=== PATIENT | male | born 1960 | race Caucasian/White ===

== ENCOUNTER 2020-09-19 07:00 | Observation (INO) ==
[2020-09-19] MEDS ORDERED: Acetaminophen IV 1,000 MG/100 ML BAG IVPB PRN (07:30)
[2020-09-19] MEDS ORDERED: *HR* OxyCODONE Immed Rel 5 MG TABLET PO PRN (07:30)
[2020-09-19] MEDS ORDERED: *HR* Meperidine 25 MG/ML SYRINGE IVP PRN (07:30)
[2020-09-19] MEDS ORDERED: *HR* FentaNYL (PF) 100 MCG/2 ML VIAL IVP PRN (07:30)
[2020-09-19] MEDS ORDERED: *HR* HYDROmorphone (PF) 1 MG/ML SYRINGE IVP PRN (07:30)
[2020-09-19] MEDS ORDERED: Heparin 1,000 UNITS/500 mL 500 ML ONE ×2 (07:44→10:24)
[2020-09-19] MEDS ORDERED: Ondansetron 4 MG/2 ML VIAL IVP PRN ×2 (08:17→13:25)
[2020-09-19] MEDS ORDERED: Naloxone 0.4 MG/ML INJ IVP PRN ×2 (08:17→13:25)
[2020-09-19 08:59] LABS: Influenza A PCR Negative (Negative); Influenza B PCR Negative (Negative); Resp. Syncytial Virus PCR Negative (Negative); SARS-CoV-2 by PCR (In House) Negative (Negative)
[2020-09-19] MEDS ORDERED: Gabapentin 300 MG CAPSULE PO SCH (09:00)
[2020-09-19] MEDS ORDERED: allopurinoL 300 MG TABLET PO SCH (09:00)
[2020-09-19] MEDS ORDERED: calcitrioL 0.25 MCG CAPSULE PO SCH (09:00)
[2020-09-19] MEDS ORDERED: ceFAZolin 1,000 MG in Water for inj. (sterile) 10 ML IVP ONE (09:32)
[2020-09-19] MEDS ORDERED: *HR* FentaNYL (PF) 100 MCG/2 ML VIAL ONE ×2 (09:36→10:30)
[2020-09-19] MEDS ORDERED: *HR* Propofol 200 MG/20 ML VIAL IVP ONE (09:36)
[2020-09-19] MEDS ORDERED: Ondansetron 4 MG/2 ML VIAL ONE (09:37)
[2020-09-19] MEDS ORDERED: *HR* Rocuronium Bromide 50 MG/5 ML VIAL ONE (09:37)
[2020-09-19] MEDS ORDERED: Dexamethasone 4 MG/ML VIAL ONE (09:37)
[2020-09-19] MEDS ORDERED: Lidocaine -MPF 2% 2 ML VIAL ONE (09:37)
[2020-09-19] MEDS ORDERED: Sugammadex Sodium 200 MG/2 ML VIAL IV ONE (10:27)
[2020-09-19] MEDS ORDERED: *HR* HYDROcodone/Acet 5/325 mg TABLET PO ONE ×2 (11:54→13:25)
[2020-09-19] MEDS ORDERED: Perit. Dialysis with Dex 2.5 % 12,000 ML PERITONEAL ONE (19:00)
[2020-09-19 20:00] LABS: Hepatitis B Surface Antibody 5.96 mIU/mL
[2020-09-19 20:11] LABS: Hepatitis B Surface Antigen Nonreactive (Nonreactive)
[2020-09-19] MEDS ORDERED: Gentamicin Oint 15 GM TUBE TP SCH (21:00)
[2020-09-19] MEDS ORDERED: Acetaminophen 325 MG TABLET PO PRN (21:36)
[2020-09-20 01:47] LABS: Basophils % 0.2 %; Hematocrit 29.6 % (37.5-50.1); Hemoglobin 9.3 g/dL (12.9-16.9); Immature Granulocytes % 0.6 % (0-4); Lymphocytes # 0.7 K/mcL (0.6-4.6); Lymphocytes % 8.8 %; Mean Corpuscular HGB Conc 31.4 g/dL (31.6-35.5); Mean Corpuscular Hemoglobin 30.7 pg (28.0-33.3); Mean Corpuscular Volume 97.7 fL (83.0-100.0); Mean Platelet Volume 10.7 fL (9.4-12.4); Monocytes # 0.4 K/mcL (0.0-1.3); Monocytes % 4.6 %; Platelet Count 236 K/mcL (140-400); Red Blood Count 3.03 M/mcL (4.19-5.50); Red Cell Distribution Width 15.3 % (11.5-14.5); Segmented Neutrophils % 85.8 %; White Blood Count 8.2 K/mcL (4.3-11.1)
[2020-09-20 02:13] LABS: Calcium 8.9 mg/dL (8.6-10.3); Potassium 4.1 mEq/L (3.5-5.1)
[2020-09-20 08:00] VITALS: BP 144/70
[2020-09-20] MEDS ORDERED: Gabapentin 300 MG CAPSULE PO SCH (09:00)
[2020-09-20] MEDS ORDERED: allopurinoL 300 MG TABLET PO SCH (09:00)
[2020-09-20] MEDS ORDERED: calcitrioL 0.25 MCG CAPSULE PO SCH (09:00)
[2020-09-20] MEDS ORDERED: *HR* HYDROcodone/Acet 5/325 mg TABLET PO ONE (10:57)
[2020-09-21] MEDS ORDERED: Ergocalciferol (VIT D2) 50,000 UNIT (1.25MG) CAP PO SCH ×2 (09:00)
== END 2020-09-20 12:14 | disposition home or self-care (01) ==
LOC: 2ANU
PROVIDERS: ADMIT Surgery; ATTEND Surgery

== ENCOUNTER 2021-07-16 14:10 | Inpatient (IN) ==
[2021-07-16 15:36] LABS: Basophils % 0.3 %; Eosinophils # 0.3 K/mcL (0.0-0.6); Eosinophils % 2.9 %; Hematocrit 30.1 % (37.5-50.1); Hemoglobin 9.5 g/dL (12.9-16.9); Immature Granulocytes % 0.4 % (0-4); Lymphocytes # 0.9 K/mcL (0.6-4.6); Lymphocytes % 8.2 %; Mean Corpuscular HGB Conc 31.6 g/dL (31.6-35.5); Mean Corpuscular Hemoglobin 31.5 pg (28.0-33.3); Mean Corpuscular Volume 99.7 fL (83.0-100.0); Mean Platelet Volume 10.5 fL (9.4-12.4); Monocytes # 0.7 K/mcL (0.0-1.3); Monocytes % 6.9 %; Neutrophils # 8.6 K/mcL (1.6-8.9); Platelet Count 231 K/mcL (140-400); Red Blood Count 3.02 M/mcL (4.19-5.50); Red Cell Distribution Width 15.1 % (11.5-14.5); Segmented Neutrophils % 81.3 %; White Blood Count 10.5 K/mcL (4.3-11.1)
[2021-07-16 16:02] LABS: Alanine Aminotransferase 9 Units/L (7-52); Albumin 4.2 g/dL (3.5-5.7); Albumin/Globulin Ratio 1.9 (1.1-2.2); Alkaline Phosphatase 94 Units/L (34-104); Aspartate Amino Transferase 18 Units/L (13-39); Bilirubin,Indirect 0.3 mg/dL (0.0-1.0); Bilirubin,Total 0.3 mg/dL (0.3-1.0); Blood Urea Nitrogen > 130 mg/dL (8-23); Calcium 9.3 mg/dL (8.6-10.3); Carbon Dioxide 12 mEq/L (23-29); Chloride 107 mEq/L (98-107); Ethanol < 10 mg/dL (Less than 10); Globulin 2.2 g/dL (2.4-3.5); Glucose 98 mg/dL (70-105); Potassium 4.5 mEq/L (3.5-5.1); Sodium 137 mEq/L (136-145); Total Protein 6.4 g/dL (6.4-8.9); Troponin I 0.04 ng/mL (< 0.04); eGFR For African Americans 5 (> 60); eGFR For Non-African Americans 4 (> 60)
[2021-07-16 16:24] LABS: Activated Partial Thrombo Time 41.1 Seconds (26.0-36.0)
[2021-07-16] MEDS ORDERED: cefTRIAXone 2,000 MG in 0.9 % Sodium Chloride Mini Bag 100 ML IVPB ONE (16:38)
[2021-07-16 16:42] LABS: INR 1.2; Prothrombin Time 13.1 Seconds (9.4-12.1)
[2021-07-16 17:46] LABS: Influenza A PCR Negative (Negative); Influenza B PCR Negative (Negative); Resp. Syncytial Virus PCR Negative (Negative)
[2021-07-16 17:47] LABS: SARS-CoV-2 by PCR (In House) Negative (Negative)
[2021-07-16] MEDS ORDERED: Dextrose Gel 15 GM/37.5 ML TUBE PO PRN ×2 (18:00)
[2021-07-16] MEDS ORDERED: *HR* Dextrose 50 % in Water (Syg) 50 ML SYRINGE IVP PRN (18:00)
[2021-07-16] MEDS ORDERED: Ondansetron 4 MG/2 ML VIAL IVP PRN (18:00)
[2021-07-16] MEDS ORDERED: D5% in Water 1,000 ML IVC PRN (18:00)
[2021-07-16] MEDS ORDERED: Vancomycin 1,750 MG/517.5 ML IV.SOLN IVPB ONE (18:00)
[2021-07-16] MEDS ORDERED: Acetaminophen 325 MG TABLET PO PRN (18:00)
[2021-07-16] MEDS ORDERED: Naloxone 0.4 MG/ML INJ IVP PRN (18:00)
[2021-07-16] MEDS ORDERED: diazePAM 5 MG TABLET PO PRN (18:20)
[2021-07-16] MEDS ORDERED: Perit. Dialysis with Dex 1.5 % 12,000 ML PERITONEAL ONE (19:00)
[2021-07-16 19:35] LABS: Bilirubin,Urine Negative (Negative); Blood,Urine Small (Negative); Clarity,Urine Clear (Clear); Color,Urine Colorless (Yellow); Glucose,Urine (UA) Normal (Normal); Ketones,Urine Negative (Negative); Leukocyte Esterase,Urine Negative (Negative); Nitrite,Urine Negative (Negative); Protein,Urine 200 mg/dL (Neg-Trace); RBC,Urine 0-3 per hpf (0-3); Specific Gravity,Urine 1.011 (1.010-1.025); Urobilinogen,Urine Normal (Normal); WBC,Urine 0-3 per hpf (0-3)
[2021-07-16 19:40] LABS: Amphetamine Screen,Urine Negative ng/mL (Cutoff=1000); Barbiturate Screen,Urine Negative ng/mL (Cutoff=200); Benzodiazepines Screen,Urine Positive ng/mL (Cutoff=200); Cannabinoid Screen,Urine Negative ng/mL (Cutoff = 50); Cocaine Screen,Urine Negative ng/mL (Cutoff= 300); Opiate Screen,Urine Positive ng/mL (Cutoff=300); Phencyclidine Screen,Urine Negative ng/mL (Cutoff=25)
[2021-07-16 22:33] LABS: RBC,Peritoneal Fluid 2000 RBC/mcL
[2021-07-16 22:48] LABS: Appearance of Peritoneal Fl HAZY (Clear)
[2021-07-17 02:36] LABS: Basophils % 0.5 %; Eosinophils # 0.2 K/mcL (0.0-0.6); Eosinophils % 2.4 %; Hematocrit 26.9 % (37.5-50.1); Hemoglobin 8.7 g/dL (12.9-16.9); Immature Granulocytes % 0.7 % (0-4); Lymphocytes # 0.8 K/mcL (0.6-4.6); Lymphocytes % 8.8 %; Mean Corpuscular HGB Conc 32.3 g/dL (31.6-35.5); Mean Corpuscular Hemoglobin 32.1 pg (28.0-33.3); Mean Corpuscular Volume 99.3 fL (83.0-100.0); Mean Platelet Volume 10.8 fL (9.4-12.4); Monocytes # 0.7 K/mcL (0.0-1.3); Monocytes % 8.4 %; Neutrophils # 6.7 K/mcL (1.6-8.9); Platelet Count 218 K/mcL (140-400); Red Blood Count 2.71 M/mcL (4.19-5.50); Red Cell Distribution Width 15.3 % (11.5-14.5); Segmented Neutrophils % 79.2 %; White Blood Count 8.5 K/mcL (4.3-11.1)
[2021-07-17 03:34] LABS: Calcium 8.9 mg/dL (8.6-10.3); Magnesium 1.2 mg/dL (1.6-2.6); Potassium 4.2 mEq/L (3.5-5.1); Troponin I 0.05 ng/mL (< 0.04)
[2021-07-17 04:58] LABS: Hepatitis B Surface Antibody < 3.10 mIU/mL
[2021-07-17 05:08] LABS: Hepatitis B Surface Antigen Nonreactive (Nonreactive)
[2021-07-17] MEDS ORDERED: Insulin LISPRO 300 UNITS/3 ML VIAL SUBQ SCH (07:30)
[2021-07-17] MEDS: Gabapentin 300 MG CAPSULE PO SCH (08:42)
[2021-07-17] MEDS: lisinopriL 5 MG TABLET PO SCH (08:42)
[2021-07-17] MEDS: allopurinoL 300 MG TABLET PO SCH (08:43)
[2021-07-17] MEDS: Ezetimibe [Zetia] 10 MG Tablet PO SCH (09:03)
[2021-07-17 12:17] LABS: Glucose,Peritoneal Fluid 737 mg/dL (No Ref Range); LDH,Peritoneal Fluid < 25 Units/L (No Ref Range); Total Protein,Peritoneal Fluid < 2.0 g/dL
[2021-07-17 12:31] LABS: Appearance of Pericardial Fl Clear (Clear)
[2021-07-17 12:32] LABS: Volume of Pericardial Fluid 212.5 mL
[2021-07-17] MEDS ORDERED: Gadolinium Contrast Agent (WT Based) IV PRN (14:57)
[2021-07-17] MEDS ORDERED: Darbepoetin 100 MCG/0.5 ML SYRINGE SQ SCH (16:00)
[2021-07-17] MEDS: cefTRIAXone 1,000 MG in 0.9 % Sodium Chloride Mini Bag 100 ML IVPB SCH (17:49)
[2021-07-17] MEDS ORDERED: Perit. Dialysis with Dex 1.5 % 12,000 ML PERITONEAL ONE (19:00)
[2021-07-17] MEDS: *HR* Heparin 5,000 UNIT/ML VIAL SQ SCH (22:53)
[2021-07-18] MEDS: traZODone 50 MG TABLET PO PRN ×2 (01:20→23:06)
[2021-07-18] MEDS: *HR* Heparin 5,000 UNIT/ML VIAL SQ SCH ×3 (06:04→19:51)
[2021-07-18 07:14] LABS: % Iron Saturation 23 % (20-55); Iron 45 mcg/dL (65-175); Transferrin 141 mg/dL (203-362)
[2021-07-18 07:16] LABS: Albumin 3.5 g/dL (3.5-5.7); Albumin/Globulin Ratio 1.8 (1.1-2.2); Bilirubin,Total 0.3 mg/dL (0.3-1.0); Calcium 8.6 mg/dL (8.6-10.3); Potassium 3.5 mEq/L (3.5-5.1); Total Protein 5.5 g/dL (6.4-8.9)
[2021-07-18 07:31] LABS: Basophils % 0.4 %; Eosinophils # 0.1 K/mcL (0.0-0.6); Eosinophils % 1.5 %; Hematocrit 26.5 % (37.5-50.1); Hemoglobin 8.5 g/dL (12.9-16.9); Immature Granulocytes % 0.5 % (0-4); Lymphocytes # 0.6 K/mcL (0.6-4.6); Lymphocytes % 6.5 %; Mean Corpuscular HGB Conc 32.1 g/dL (31.6-35.5); Mean Corpuscular Volume 96.7 fL (83.0-100.0); Mean Platelet Volume 10.7 fL (9.4-12.4); Monocytes # 0.7 K/mcL (0.0-1.3); Monocytes % 7.7 %; Platelet Count 227 K/mcL (140-400); Red Blood Count 2.74 M/mcL (4.19-5.50); Red Cell Distribution Width 14.8 % (11.5-14.5); Segmented Neutrophils % 83.4 %; White Blood Count 9.6 K/mcL (4.3-11.1)
[2021-07-18] MEDS: allopurinoL 300 MG TABLET PO SCH (08:45)
[2021-07-18] MEDS: lisinopriL 5 MG TABLET PO SCH (08:45)
[2021-07-18] MEDS: Ezetimibe [Zetia] 10 MG Tablet PO SCH (08:46)
[2021-07-18] MEDS: Gabapentin 300 MG CAPSULE PO SCH (08:46)
[2021-07-18] MEDS: cefTRIAXone 1,000 MG in 0.9 % Sodium Chloride Mini Bag 100 ML IVPB SCH (16:36)
[2021-07-18] MEDS ORDERED: Perit. Dialysis with Dex 1.5 % 12,000 ML PERITONEAL ONE (20:47)
[2021-07-19] MEDS: *HR* Heparin 5,000 UNIT/ML VIAL SQ SCH ×3 (05:19→19:58)
[2021-07-19 05:51] LABS: Basophils % 0.5 %; Eosinophils # 0.2 K/mcL (0.0-0.6); Eosinophils % 3.4 %; Hematocrit 24.9 % (37.5-50.1); Hemoglobin 8.3 g/dL (12.9-16.9); Immature Granulocytes % 0.5 % (0-4); Lymphocytes # 0.9 K/mcL (0.6-4.6); Lymphocytes % 13.9 %; Mean Corpuscular HGB Conc 33.3 g/dL (31.6-35.5); Mean Corpuscular Volume 96.1 fL (83.0-100.0); Mean Platelet Volume 10.9 fL (9.4-12.4); Monocytes # 0.6 K/mcL (0.0-1.3); Monocytes % 9.4 %; Neutrophils # 4.6 K/mcL (1.6-8.9); Platelet Count 228 K/mcL (140-400); Red Blood Count 2.59 M/mcL (4.19-5.50); Red Cell Distribution Width 14.8 % (11.5-14.5); Segmented Neutrophils % 72.3 %; White Blood Count 6.4 K/mcL (4.3-11.1)
[2021-07-19 06:21] LABS: Albumin 3.4 g/dL (3.5-5.7); Albumin/Globulin Ratio 1.8 (1.1-2.2); Bilirubin,Total 0.3 mg/dL (0.3-1.0); Calcium 8.5 mg/dL (8.6-10.3); Globulin 1.9 g/dL (2.4-3.5); Total Protein 5.3 g/dL (6.4-8.9)
[2021-07-19] MEDS: Ezetimibe [Zetia] 10 MG Tablet PO SCH (08:25)
[2021-07-19] MEDS: Gabapentin 300 MG CAPSULE PO SCH (08:38)
[2021-07-19] MEDS: lisinopriL 5 MG TABLET PO SCH (08:38)
[2021-07-19] MEDS: allopurinoL 300 MG TABLET PO SCH (08:39)
[2021-07-19] MEDS ORDERED: *HR* FentaNYL (PF) 100 MCG/2 ML VIAL IVP ONE (10:40)
[2021-07-19] MEDS ORDERED: *HR* Midazolam HCl 2 MG/2 ML VIAL IVP ONE (10:40)
[2021-07-19] MEDS ORDERED: *HR* Heparin 5,000 UNIT/ML VIAL ONE (10:47)
[2021-07-19] MEDS ORDERED: 0.9 % Sodium Chloride 500 ML ONE (10:47)
[2021-07-19] MEDS ORDERED: Heparin 1,000 UNITS/500 mL 500 ML ONE (10:55)
[2021-07-19 18:43] LABS: Fluid Source for Albumin PERITON/ASCITES
[2021-07-19] MEDS: traZODone 50 MG TABLET PO PRN (19:58)
[2021-07-20 01:34] LABS: Basophils # 0.1 K/mcL (0.0-0.2); Basophils % 0.6 %; Eosinophils # 0.3 K/mcL (0.0-0.6); Eosinophils % 3.7 %; Hematocrit 26.4 % (37.5-50.1); Hemoglobin 8.7 g/dL (12.9-16.9); Immature Granulocytes % 0.4 % (0-4); Lymphocytes # 1.4 K/mcL (0.6-4.6); Lymphocytes % 18.1 %; Mean Corpuscular Hemoglobin 31.6 pg (28.0-33.3); Monocytes # 0.8 K/mcL (0.0-1.3); Monocytes % 9.6 %; Neutrophils # 5.3 K/mcL (1.6-8.9); Platelet Count 252 K/mcL (140-400); Red Blood Count 2.75 M/mcL (4.19-5.50); Red Cell Distribution Width 14.7 % (11.5-14.5); Segmented Neutrophils % 67.6 %; White Blood Count 7.8 K/mcL (4.3-11.1)
[2021-07-20 01:53] LABS: Albumin 3.6 g/dL (3.5-5.7); Albumin/Globulin Ratio 1.6 (1.1-2.2); Bilirubin,Total 0.3 mg/dL (0.3-1.0); Calcium 8.6 mg/dL (8.6-10.3); Globulin 2.3 g/dL (2.4-3.5); Potassium 3.3 mEq/L (3.5-5.1); Total Protein 5.9 g/dL (6.4-8.9)
[2021-07-20] MEDS: *HR* Heparin 5,000 UNIT/ML VIAL SQ SCH ×3 (05:50→21:52)
[2021-07-20] MEDS: lisinopriL 5 MG TABLET PO SCH (07:49)
[2021-07-20] MEDS: allopurinoL 300 MG TABLET PO SCH (07:50)
[2021-07-20] MEDS: Gabapentin 300 MG CAPSULE PO SCH (07:50)
[2021-07-20] MEDS ORDERED: 0.9 % Sodium Chloride 250 ML IVC PRN (09:59)
[2021-07-20] MEDS ORDERED: *HR* Heparin 10,000 UNIT/10 ML VIAL IV PRN (09:59)
[2021-07-20] MEDS ORDERED: 0.9 % Sodium Chloride 1,000 ML PRIME SCH (10:00)
[2021-07-21 05:57] LABS: Albumin 3.8 g/dL (3.5-5.7); Albumin/Globulin Ratio 1.8 (1.1-2.2); Bilirubin,Total 0.4 mg/dL (0.3-1.0); Calcium 9.2 mg/dL (8.6-10.3); Globulin 2.1 g/dL (2.4-3.5); Potassium 3.3 mEq/L (3.5-5.1); Total Protein 5.9 g/dL (6.4-8.9)
[2021-07-21] MEDS: *HR* Heparin 5,000 UNIT/ML VIAL SQ SCH ×3 (06:12→22:00)
[2021-07-21] MEDS: Gabapentin 300 MG CAPSULE PO SCH (08:35)
[2021-07-21] MEDS: allopurinoL 300 MG TABLET PO SCH (08:36)
[2021-07-21] MEDS: lisinopriL 5 MG TABLET PO SCH (08:36)
[2021-07-22 01:58] LABS: Hematocrit 27.4 % (37.5-50.1); Hemoglobin 8.8 g/dL (12.9-16.9); Mean Corpuscular HGB Conc 32.1 g/dL (31.6-35.5); Mean Corpuscular Hemoglobin 31.4 pg (28.0-33.3); Mean Corpuscular Volume 97.9 fL (83.0-100.0); Mean Platelet Volume 10.5 fL (9.4-12.4); Platelet Count 247 K/mcL (140-400); Red Cell Distribution Width 14.5 % (11.5-14.5); White Blood Count 8.6 K/mcL (4.3-11.1)
[2021-07-22 02:21] LABS: Potassium 3.1 mEq/L (3.5-5.1)
[2021-07-22] MEDS: *HR* Heparin 5,000 UNIT/ML VIAL SQ SCH ×3 (05:10→21:02)
[2021-07-22] MEDS ORDERED: Isovue-370 500 ML BOTTLE IVP ONE (08:00)
[2021-07-22] MEDS: allopurinoL 300 MG TABLET PO SCH (08:05)
[2021-07-22] MEDS: lisinopriL 5 MG TABLET PO SCH (08:05)
[2021-07-22] MEDS ORDERED: 0.9 % Sodium Chloride 250 ML IVC PRN (09:08)
[2021-07-22] MEDS ORDERED: *HR* Heparin 10,000 UNIT/10 ML VIAL IV PRN (09:08)
[2021-07-22] MEDS ORDERED: Gabapentin 300 MG CAPSULE PO SCH (21:00)
[2021-07-23] MEDS: *HR* Heparin 5,000 UNIT/ML VIAL SQ SCH (05:15)
[2021-07-23 06:30] VITALS: PULSE 102; O2SAT 93
[2021-07-23 06:30] LABS: Hematocrit 29.2 % (37.5-50.1); Hemoglobin 9.3 g/dL (12.9-16.9); Mean Corpuscular HGB Conc 31.8 g/dL (31.6-35.5); Mean Corpuscular Hemoglobin 31.6 pg (28.0-33.3); Mean Corpuscular Volume 99.3 fL (83.0-100.0); Mean Platelet Volume 10.3 fL (9.4-12.4); Platelet Count 269 K/mcL (140-400); Red Blood Count 2.94 M/mcL (4.19-5.50); Red Cell Distribution Width 14.6 % (11.5-14.5); White Blood Count 8.4 K/mcL (4.3-11.1)
[2021-07-23 06:52] LABS: Calcium 9.2 mg/dL (8.6-10.3); Potassium 3.7 mEq/L (3.5-5.1)
[2021-07-23] MEDS: lisinopriL 5 MG TABLET PO SCH (09:40)
[2021-07-23] MEDS: allopurinoL 300 MG TABLET PO SCH (09:41)
[2021-07-23] MEDS ORDERED: 0.9 % Sodium Chloride 250 ML IVC PRN (10:39)
[2021-07-23] MEDS ORDERED: *HR* Heparin 10,000 UNIT/10 ML VIAL IV PRN (10:39)
[2021-07-23 14:21] VITALS: BP 149/93; TEMP 98.5
== END 2021-07-23 15:09 | disposition home or self-care (01) | DRG 280 ==
LOC: 2ANU 14:10 → EMEROOARM 14:10 → 2ANU 18:32 → SUATTDRO 07-17 17:44
PROVIDERS: ADMIT Internal Medicine; ATTEND Family Medicine
PROC: IRPERMA (2021-07-19 12:00)

== ENCOUNTER 2021-10-22 10:08 | Inpatient (IN) ==
[2021-10-22] MEDS ORDERED: Naloxone 0.4 MG/ML INJ IVP PRN (10:36)
[2021-10-22 11:50] LABS: Basophils % 0.5 %; Eosinophils # 0.2 K/mcL (0.0-0.6); Hematocrit 34.6 % (37.5-50.1); Immature Granulocytes % 0.4 % (0-4); Lymphocytes # 1.4 K/mcL (0.6-4.6); Lymphocytes % 19.4 %; Mean Corpuscular HGB Conc 31.8 g/dL (31.6-35.5); Mean Corpuscular Hemoglobin 32.4 pg (28.0-33.3); Mean Corpuscular Volume 101.8 fL (83.0-100.0); Mean Platelet Volume 9.8 fL (9.4-12.4); Monocytes # 0.6 K/mcL (0.0-1.3); Monocytes % 7.7 %; Neutrophils # 5.1 K/mcL (1.6-8.9); Platelet Count 213 K/mcL (140-400); Red Cell Distribution Width 14.4 % (11.5-14.5); White Blood Count 7.4 K/mcL (4.3-11.1)
[2021-10-22 12:08] LABS: Albumin 4.3 g/dL (3.5-5.7); Albumin/Globulin Ratio 2.2 (1.1-2.2); Bilirubin,Total 0.4 mg/dL (0.3-1.0); Calcium 9.7 mg/dL (8.6-10.3); Potassium 4.1 mEq/L (3.5-5.1); Total Protein 6.3 g/dL (6.4-8.9)
[2021-10-22] MEDS ORDERED: *HR* Heparin 5,000 UNIT/ML VIAL IVP PRN ×2 (13:43)
[2021-10-22] MEDS ORDERED: 0.9 % Sodium Chloride 250 ML IVC PRN (13:52)
[2021-10-22] MEDS ORDERED: *HR* Heparin 10,000 UNIT/10 ML VIAL IV PRN (13:57)
[2021-10-22] MEDS ORDERED: 0.9 % Sodium Chloride 1,000 ML PRIME SCH (14:00)
[2021-10-22 14:57] LABS: Hepatitis B Surface Antibody < 3.10 mIU/mL
[2021-10-22 15:08] LABS: Hepatitis B Surface Antigen Nonreactive (Nonreactive)
[2021-10-22 15:37] LABS: Heparin anti-factor XA UFH < 0.04 IU/mL (0.30-0.70)
[2021-10-22 15:38] LABS: INR 1.7; Prothrombin Time 19.1 Seconds (9.4-12.1)
[2021-10-22] MEDS: Heparin 25,000UNIT/250ML 1/2NS 25,000 UNIT/250 ML IV.SOLN IVC SCH (16:03)
[2021-10-22] MEDS: Gabapentin 300 MG CAPSULE PO SCH ×2 (20:44→20:48)
[2021-10-22] MEDS: allopurinoL 300 MG TABLET PO SCH (20:45)
[2021-10-22] MEDS: lisinopriL 5 MG TABLET PO SCH (20:45)
[2021-10-22] MEDS: *HR* HYDROmorphone 2 MG TABLET PO PRN (20:56)
[2021-10-22] MEDS: diazePAM 5 MG TABLET PO PRN (21:01)
[2021-10-23 06:17] LABS: Basophils % 0.6 %; Eosinophils # 0.2 K/mcL (0.0-0.6); Eosinophils % 3.8 %; Hematocrit 35.3 % (37.5-50.1); Hemoglobin 11.5 g/dL (12.9-16.9); Immature Granulocytes % 0.4 % (0-4); Lymphocytes # 1.9 K/mcL (0.6-4.6); Lymphocytes % 35.3 %; Mean Corpuscular HGB Conc 32.6 g/dL (31.6-35.5); Mean Corpuscular Volume 101.1 fL (83.0-100.0); Mean Platelet Volume 9.8 fL (9.4-12.4); Monocytes # 0.5 K/mcL (0.0-1.3); Neutrophils # 2.7 K/mcL (1.6-8.9); Platelet Count 188 K/mcL (140-400); Red Blood Count 3.49 M/mcL (4.19-5.50); Red Cell Distribution Width 14.6 % (11.5-14.5); Segmented Neutrophils % 49.9 %; White Blood Count 5.3 K/mcL (4.3-11.1)
[2021-10-23 06:25] LABS: INR 1.4; Prothrombin Time 15.5 Seconds (9.4-12.1)
[2021-10-23 06:35] LABS: Calcium 9.5 mg/dL (8.6-10.3); Potassium 4.2 mEq/L (3.5-5.1)
[2021-10-23] MEDS: Vitamin B Complex/Vit C/Vit E 1 EACH TABLET PO SCH (08:11)
[2021-10-23] MEDS: calcitrioL 0.25 MCG CAPSULE PO SCH (08:12)
[2021-10-23] MEDS: Heparin 25,000UNIT/250ML 1/2NS 25,000 UNIT/250 ML IV.SOLN IVC SCH (09:45)
[2021-10-23] MEDS: lisinopriL 5 MG TABLET PO SCH (17:16)
[2021-10-23] MEDS: allopurinoL 300 MG TABLET PO SCH (17:16)
[2021-10-23] MEDS: Gabapentin 300 MG CAPSULE PO SCH (17:20)
[2021-10-23] MEDS: *HR* HYDROmorphone 2 MG TABLET PO PRN (20:23)
[2021-10-23] MEDS: diazePAM 5 MG TABLET PO PRN (20:23)
[2021-10-24 01:18] LABS: Basophils % 0.5 %; Eosinophils # 0.1 K/mcL (0.0-0.6); Eosinophils % 2.2 %; Hematocrit 34.6 % (37.5-50.1); Immature Granulocytes % 0.3 % (0-4); Lymphocytes # 1.9 K/mcL (0.6-4.6); Lymphocytes % 30.3 %; Mean Corpuscular HGB Conc 31.8 g/dL (31.6-35.5); Mean Corpuscular Hemoglobin 32.4 pg (28.0-33.3); Mean Corpuscular Volume 102.1 fL (83.0-100.0); Mean Platelet Volume 9.8 fL (9.4-12.4); Monocytes # 0.6 K/mcL (0.0-1.3); Monocytes % 9.4 %; Neutrophils # 3.7 K/mcL (1.6-8.9); Platelet Count 199 K/mcL (140-400); Red Blood Count 3.39 M/mcL (4.19-5.50); Red Cell Distribution Width 14.3 % (11.5-14.5); Segmented Neutrophils % 57.3 %; White Blood Count 6.4 K/mcL (4.3-11.1)
[2021-10-24 01:28] LABS: INR 1.2; Prothrombin Time 13.2 Seconds (9.4-12.1)
[2021-10-24 01:39] LABS: Calcium 9.5 mg/dL (8.6-10.3); Potassium 4.7 mEq/L (3.5-5.1)
[2021-10-24] MEDS: Heparin 25,000UNIT/250ML 1/2NS 25,000 UNIT/250 ML IV.SOLN IVC SCH (04:59)
[2021-10-24] MEDS: calcitrioL 0.25 MCG CAPSULE PO SCH (07:57)
[2021-10-24] MEDS: Vitamin B Complex/Vit C/Vit E 1 EACH TABLET PO SCH (07:57)
[2021-10-24] MEDS: Gabapentin 300 MG CAPSULE PO SCH (17:30)
[2021-10-24] MEDS: allopurinoL 300 MG TABLET PO SCH (17:30)
[2021-10-24] MEDS: lisinopriL 5 MG TABLET PO SCH (17:30)
[2021-10-24] MEDS: *HR* HYDROmorphone 2 MG TABLET PO PRN (20:46)
[2021-10-25] MEDS: Heparin 25,000UNIT/250ML 1/2NS 25,000 UNIT/250 ML IV.SOLN IVC SCH ×2 (00:28→22:36)
[2021-10-25 01:28] LABS: Basophils % 0.5 %; Eosinophils # 0.1 K/mcL (0.0-0.6); Eosinophils % 2.2 %; Hematocrit 33.6 % (37.5-50.1); Hemoglobin 11.1 g/dL (12.9-16.9); Immature Granulocytes % 0.3 % (0-4); Lymphocytes # 1.7 K/mcL (0.6-4.6); Lymphocytes % 28.4 %; Mean Corpuscular Hemoglobin 33.1 pg (28.0-33.3); Mean Corpuscular Volume 100.3 fL (83.0-100.0); Monocytes # 0.4 K/mcL (0.0-1.3); Monocytes % 6.7 %; Neutrophils # 3.7 K/mcL (1.6-8.9); Platelet Count 235 K/mcL (140-400); Red Blood Count 3.35 M/mcL (4.19-5.50); Red Cell Distribution Width 13.9 % (11.5-14.5); Segmented Neutrophils % 61.9 %
[2021-10-25 01:34] LABS: INR 1.1; Prothrombin Time 11.8 Seconds (9.4-12.1)
[2021-10-25 02:06] LABS: Potassium 5.1 mEq/L (3.5-5.1)
[2021-10-25] MEDS ORDERED: *HR* Dextrose 50 % in Water (Syg) 50 ML SYRINGE IVP PRN (05:33)
[2021-10-25] MEDS ORDERED: D5% in Water 1,000 ML IVC PRN (05:33)
[2021-10-25] MEDS ORDERED: Dextrose 4 GM Chewable Tablets PO PRN ×2 (05:33)
[2021-10-25] MEDS ORDERED: 0.9 % Sodium Chloride 250 ML IVC PRN (07:50)
[2021-10-25] MEDS ORDERED: *HR* Heparin 10,000 UNIT/10 ML VIAL IV PRN (07:50)
[2021-10-25] MEDS ORDERED: 0.9 % Sodium Chloride 1,000 ML PRIME SCH (08:00)
[2021-10-25] MEDS: calcitrioL 0.25 MCG CAPSULE PO SCH (09:50)
[2021-10-25] MEDS: Vitamin B Complex/Vit C/Vit E 1 EACH TABLET PO SCH (09:51)
[2021-10-25] MEDS ORDERED: Ondansetron 4 MG/2 ML VIAL IVP PRN (13:25)
[2021-10-25] MEDS ORDERED: Albuterol 2.5 MG/3 ML NEBULIZER IH PRN (13:25)
[2021-10-25] MEDS ORDERED: Naloxone 0.4 MG/ML INJ IVP PRN (13:25)
[2021-10-25] MEDS ORDERED: Nitroglycerin 0.4 MG TAB.SUBL SL PRN (13:25)
[2021-10-25] MEDS ORDERED: *HR* Propofol 200 MG/20 ML VIAL IVP ONE ×2 (14:50→15:32)
[2021-10-25] MEDS ORDERED: Ondansetron 4 MG/2 ML VIAL ONE (14:51)
[2021-10-25] MEDS ORDERED: Lidocaine -MPF 2% 2 ML VIAL ONE (14:51)
[2021-10-25] MEDS ORDERED: *HR* FentaNYL (PF) 100 MCG/2 ML VIAL ONE ×2 (15:08→15:32)
[2021-10-25] MEDS ORDERED: ceFAZolin 1,000 MG in Water for inj. (sterile) 10 ML IVP ONE (15:32)
[2021-10-25] MEDS: lisinopriL 5 MG TABLET PO SCH (17:41)
[2021-10-25] MEDS: Gabapentin 300 MG CAPSULE PO SCH (17:42)
[2021-10-25] MEDS: allopurinoL 300 MG TABLET PO SCH (17:43)
[2021-10-25] MEDS: *HR* HYDROmorphone 2 MG TABLET PO PRN (17:48)
[2021-10-25] MEDS ORDERED: *HR* Warfarin 5 MG TABLET PO ONE (18:00)
[2021-10-25] MEDS ORDERED: Warfarin perPT PO PRN (18:00)
[2021-10-25 18:58] LABS: Hematocrit 35.3 % (37.5-50.1); Hemoglobin 11.7 g/dL (12.9-16.9); Mean Corpuscular HGB Conc 33.1 g/dL (31.6-35.5); Mean Corpuscular Hemoglobin 32.6 pg (28.0-33.3); Mean Corpuscular Volume 98.3 fL (83.0-100.0); Mean Platelet Volume 9.6 fL (9.4-12.4); Platelet Count 184 K/mcL (140-400); Red Blood Count 3.59 M/mcL (4.19-5.50); Red Cell Distribution Width 14.1 % (11.5-14.5); White Blood Count 5.8 K/mcL (4.3-11.1)
[2021-10-25 19:08] LABS: Heparin anti-factor XA UFH < 0.04 IU/mL (0.30-0.70)
[2021-10-25 19:09] LABS: INR 1.1; Prothrombin Time 11.9 Seconds (9.4-12.1)
[2021-10-25] MEDS ORDERED: *HR* Heparin 5,000 UNIT/ML VIAL IVP PRN (22:00)
[2021-10-26 05:28] LABS: Basophils % 0.2 %; Eosinophils % 0.1 %; Hematocrit 33.8 % (37.5-50.1); Hemoglobin 11.1 g/dL (12.9-16.9); Immature Granulocytes % 0.3 % (0-4); Lymphocytes # 0.9 K/mcL (0.6-4.6); Lymphocytes % 10.8 %; Mean Corpuscular HGB Conc 32.8 g/dL (31.6-35.5); Mean Corpuscular Hemoglobin 32.9 pg (28.0-33.3); Mean Corpuscular Volume 100.3 fL (83.0-100.0); Monocytes # 0.5 K/mcL (0.0-1.3); Monocytes % 5.4 %; Neutrophils # 7.2 K/mcL (1.6-8.9); Platelet Count 193 K/mcL (140-400); Red Blood Count 3.37 M/mcL (4.19-5.50); Segmented Neutrophils % 83.2 %
[2021-10-26 05:30] LABS: White Blood Count 8.7 K/mcL (4.3-11.1)
[2021-10-26 05:38] LABS: INR 1.2; Prothrombin Time 12.9 Seconds (9.4-12.1)
[2021-10-26 05:39] LABS: Calcium 9.5 mg/dL (8.6-10.3); Magnesium 2.2 mg/dL (1.6-2.6); Phosphorous 6.9 mg/dL (2.7-4.5)
[2021-10-26] MEDS: SODIUM ZIRCONIUM CYCLOSILICATE 5 GM POWD.PACK PO SCH (09:09)
[2021-10-26] MEDS: calcitrioL 0.25 MCG CAPSULE PO SCH (09:09)
[2021-10-26] MEDS: Vitamin B Complex/Vit C/Vit E 1 EACH TABLET PO SCH (09:09)
[2021-10-26] MEDS: *HR* Heparin 5,000 UNIT/ML VIAL IVP PRN (09:31)
[2021-10-26] MEDS: Heparin 25,000UNIT/250ML 1/2NS 25,000 UNIT/250 ML IV.SOLN IVC SCH (16:37)
[2021-10-26] MEDS: allopurinoL 300 MG TABLET PO SCH (17:15)
[2021-10-26] MEDS ORDERED: *HR* Warfarin 7.5 MG TABLET PO ONE (18:00)
[2021-10-26] MEDS: diazePAM 5 MG TABLET PO PRN (21:39)
[2021-10-26] MEDS: Gabapentin 300 MG CAPSULE PO SCH (21:40)
[2021-10-26] MEDS: *HR* HYDROmorphone 2 MG TABLET PO PRN (21:40)
[2021-10-27 05:45] LABS: Basophils % 0.7 %; Eosinophils # 0.1 K/mcL (0.0-0.6); Eosinophils % 1.7 %; Hemoglobin 11.1 g/dL (12.9-16.9); Immature Granulocytes % 0.2 % (0-4); Lymphocytes % 33.7 %; Mean Corpuscular HGB Conc 31.7 g/dL (31.6-35.5); Mean Corpuscular Hemoglobin 32.6 pg (28.0-33.3); Mean Corpuscular Volume 102.9 fL (83.0-100.0); Mean Platelet Volume 10.4 fL (9.4-12.4); Monocytes # 0.5 K/mcL (0.0-1.3); Monocytes % 7.8 %; Neutrophils # 3.4 K/mcL (1.6-8.9); Platelet Count 186 K/mcL (140-400); Red Cell Distribution Width 14.1 % (11.5-14.5); Segmented Neutrophils % 55.9 %
[2021-10-27 05:52] LABS: INR 1.2; Prothrombin Time 13.1 Seconds (9.4-12.1)
[2021-10-27 06:07] LABS: Calcium 9.7 mg/dL (8.6-10.3); Potassium 6.5 mEq/L (3.5-5.1)
[2021-10-27] MEDS ORDERED: Ipratropium/Albuterol Neb 3 ML IH ONE (06:13)
[2021-10-27] MEDS: SODIUM ZIRCONIUM CYCLOSILICATE 5 GM POWD.PACK PO SCH (06:54)
[2021-10-27] MEDS ORDERED: 0.9 % Sodium Chloride 250 ML IVC PRN (07:11)
[2021-10-27] MEDS ORDERED: *HR* Heparin 10,000 UNIT/10 ML VIAL IV PRN (08:21)
[2021-10-27] MEDS: calcitrioL 0.25 MCG CAPSULE PO SCH (08:48)
[2021-10-27] MEDS: Vitamin B Complex/Vit C/Vit E 1 EACH TABLET PO SCH (08:48)
[2021-10-27] MEDS: Heparin 25,000UNIT/250ML 1/2NS 25,000 UNIT/250 ML IV.SOLN IVC SCH (10:07)
[2021-10-27] MEDS ORDERED: *HR* Warfarin 7.5 MG TABLET PO ONE (18:00)
[2021-10-27] MEDS: allopurinoL 300 MG TABLET PO SCH (18:06)
[2021-10-27] MEDS: Gabapentin 300 MG CAPSULE PO SCH (20:41)
[2021-10-27] MEDS: *HR* Heparin 5,000 UNIT/ML VIAL IVP PRN (23:55)
[2021-10-28] MEDS: Heparin 25,000UNIT/250ML 1/2NS 25,000 UNIT/250 ML IV.SOLN IVC SCH (04:17)
[2021-10-28 06:39] LABS: INR 1.3; Prothrombin Time 14.4 Seconds (9.4-12.1)
[2021-10-28 07:35] VITALS: BP 118/83; PULSE 67; TEMP 97.9; O2SAT 96
[2021-10-28] MEDS: Vitamin B Complex/Vit C/Vit E 1 EACH TABLET PO SCH (08:58)
[2021-10-28] MEDS: calcitrioL 0.25 MCG CAPSULE PO SCH (08:58)
== END 2021-10-28 09:28 | disposition home or self-care (01) | DRG 939 ==
LOC: 3ANU → SUATTDRO 10-24 18:09
PROVIDERS: ADMIT Internal Medicine; ATTEND Internal Medicine